=== PATIENT | male | born 1975 | race Caucasian/White ===

== ENCOUNTER 2017-09-18 13:23 | Emergency (ER) | payer SELFPAY ==
[2017-09-18 14:49] VITALS: BP 117/76
--- NOTE | 2017-09-18 16:23 | ED ---
Armen Baires Stephanie, scribed for Suhail Curran MD on 09/18/17 at 1609 . Lower Extremity - HPI Summary HPI Summary: The pt is a 41 y/o M presenting to the ED with c/o R LE pain that began on . Symptoms include R hip pain, R foot tingling and R LE numbness. His symptoms are aggravated by palpation. The pt has been taking ibuprofen for his pain. - History of Current Complaint Chief Complaint: EDExtremityLower Stated Complaint: RT LEG PAIN Time Seen by Provider: 09/18/17 15:56 Hx Obtained From: Patient Onset of Pain: Days - 11 Onset/Duration: Still Present Severity Currently: Moderate Pain Intensity: 6 Pain Scale Used: 0-10 Numeric Timing: Constant Location: Is Discrete @ - R LE Aggravating Factor(s): Other - sitting Alleviating Factor(s): Nothing Able to Bear Weight: Yes - Allergies/Home Medications Allergies/Adverse Reactions: Allergies Allergy/AdvReac Type Severity Reaction Status Date / Time No Known Allergies Allergy Verified 03/13/16 23:10 PMH/Surg Hx/FS Hx/Imm Hx Sensory History: Denies: Hx Legally Blind EENT History: Denies: Hx Deafness - Surgical History Surgery Procedure, Year, and Place: NONE Infectious Disease History: No Infectious Disease History: Denies: Traveled Outside the [place] in Last 30 Days - Family History Known Family History: Positive: Diabetes - Social History Occupation: Employed Full-time Lives: With Family Alcohol Use: Occasionally Hx Substance Use: No Substance Use Type: Reports: None Hx Tobacco Use: Yes Smoking Status (MU): Former Smoker Review of Systems Negative: Fever Positive: Other - R LE pain, R hip pain, R foot pain Positive: Numbness - R LE numbness All Other Systems Reviewed And Are Negative: Yes Physical Exam - Summary Physical Exam Summary: Appearance: The patient is well-nourished in no acute distress and in no acute pain. Skin: The skin is warm and dry and skin color reflects adequate perfusion. HEENT: The head is normocephalic and atraumatic. The pupils are equal and reactive. The conjunctivae are clear and without drainage. Nares are patent and without drainage. Mouth reveals moist mucous membranes and the throat is without erythema and exudate. The external ears are intact. The ear canals are patent and without drainage. The tympanic membranes are intact. Neck: the neck is supple with full range of motion and non-tender. There are no carotid bruits. There is no neck vein distension. Respiratory: Chest is non-tender. Lungs are clear to auscultation and breath sounds are symmetrical and equal. Cardiovascular: Heart is regular rate and rhythm. There is no murmur or rub auscultated. There is no peripheral edema and pulses are symmetrical and equal. Abdomen: The abdomen is soft and non-tender. There are normal bowel sounds heard in all four quadrants and there is no organomegaly palpated. Musculoskeletal: There is tenderness in sciatic area on the R LE. Extremities are non-tender with full range of motion. There is good capillary refill. There is no peripheral edema or calf tenderness elicited. Neurological: Patient is alert and oriented to person, place and time. The patient has symmetrical motor strength in all four extremities. Cranial nerves are grossly intact. Deep tendon reflexes are symmetrical and equal in all four extremities. Psychiatric: The patient has an appropriate affect and does not exhibit any anxiety or depression. Triage Information Reviewed: Yes Vital Signs On Initial Exam: Initial Vitals Temp Pulse Resp BP Pulse Ox 97.8 F 67 16 109/84 100 09/18/17 13:31 09/18/17 13:31 09/18/17 13:31 09/18/17 13:31 09/18/17 13:31 Vital Signs Reviewed: Yes Diagnostics - Vital Signs Vital Signs Temp Pulse Resp BP Pulse Ox 09/18/17 14:47 98.3 F 55 16 117/76 100 09/18/17 13:31 97.8 F 67 16 109/84 100 - Laboratory Lab Statement: Any lab studies that have been ordered have been reviewed, and results considered in the medical decision making process. 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 N/V/M are intact but this is just going to be aggravated by driving more. I recommended continuing ibuprofen and taking ativan as a muscle relaxer. No driving and F/U with the Physician Referral Service. - Diagnoses Provider Diagnoses: Sciatica Discharge - Sign-Out/Discharge Documenting (check all that apply): Discharge/Admit/Transfer - Discharge - Discharge Plan Condition: Stable Disposition: HOME Prescriptions: LORazepam TAB(*) [Ativan TAB(*)] 1 mg PO Q6H PRN #20 tab MDD 4 PRN Reason: Pain Patient Education Materials: Sciatica (ED) Referrals: [facility] REFERRAL [Outside] - 2 Days Additional Instructions: Return to the ED for new or worsening symptoms. - Billing Disposition and Condition Condition: STABLE Disposition: HOME The documentation as recorded by the Armen dominique Stephanie accurately reflects the service I personally performed and the decisions made by me, Suhail Curran MD.
== END 2017-09-18 16:32 | disposition home or self-care (01) ==
LOC: ED 13:23
DX: M54.31 Sciatica, right side (principal); Z87.891 Personal history of nicotine dependence
CPT/HCPCS: 99281